=== PATIENT | male | born 1975 | race Caucasian/White ===

== ENCOUNTER 2017-04-27 23:59 | Inpatient (IN) | payer OTHER ==
--- NOTE | ~2017-04-27 | EKG ---
PATIENT: MARYLOU LYNCH UNIT #: [id number] Ventricular Rate: 72 BPM Atrial Rate: 72 BPM P-R Interval: 146 ms QRS Duration: 92 ms Q-T Interval: 382 ms QTC Calculation(Bezet): 418 ms P [place]: 37 degrees Calculated R [place]: 73 degrees Calculated T [place]: 21 degrees Diagnosis Line: Normal sinus rhythm Diagnosis Line: Possible Inferior infarct , age undetermined Diagnosis Line: Abnormal ECG Diagnosis Line: When compared with ECG of 28-APR-2017 00:19, Diagnosis Line: (unconfirmed) Diagnosis Line: No significant change was found Diagnosis Line: Confirmed by TATUM MADDEN MD ([id number]) on 04/29/2017 Diagnosis Line: 7:27:08 AM INTERPRETING MD: MARYANNE ROONEY
--- NOTE | ~2017-04-27 | CO ---
Unit #: [id number] #: [id number] Patient: MARYLOU LYNCH [id number] [facility]. [place], [place] [address] [id number] MR#: [id number] NAME: MARYLOU LYNCH ROOM: 230 Age: 42 Sex: M Admission Date: 04/28/2017 : 1975 Attending Physician: Danna Aguillon M.D. Primary Care Physician: Jaime Perales M.D. Consultation Date: 04/28/2017 CONSULTATION REPORT CHIEF COMPLAINT Right antecubital fossa abscess. HISTORY OF PRESENT ILLNESS This is a 42-year-old gentleman who is difficult to get a complete history from. He apparently was climbing a tree that had thorns several days ago and developed some swelling, redness, tenderness, and warmth in the right antecubital fossa area. He is right handed. He states that he pulled out multiple thorns. PAST MEDICAL HISTORY 1. Hypertension. 2. History of seizures. 3. Anxiety. 4. COPD. 5. History of rhabdomyolysis. PAST SURGICAL HISTORY He has had some sort of fasciotomies done on the gluteal region after sustaining a fall from passing out from alcohol abuse. SOCIAL HISTORY He does smoke. He states that he has not drank for two years. MEDICATIONS Please see med rec list for list of medications. ALLERGIES Wellbutrin. FAMILY HISTORY Noncontributory. REVIEW OF SYSTEMS Negative for fevers, weight loss, or jaundice. Otherwise as above. PHYSICAL EXAMINATION VITAL SIGNS: Temperature is 99.5, heart rate is 93, respiratory rate is 18, blood pressure is 126/74. GENERAL: He drifts in and out of sleep while I am trying to interview and examine him. HEENT: Pupils equal, reactive to light and accommodation. His extraocular muscles are intact. NECK: Without masses or bruits. Unit #: [id number] #: [id number] Patient: MARYLOU LYNCH LUNGS: Show good breath sounds bilaterally with equal air exchange. CARDIAC: Shows regular rate and rhythm without murmur. ABDOMEN: Soft, nontender, nondistended with no organomegaly. EXTREMITIES: In the right antecubital fossa area, he has some cellulitis with induration and severe tenderness. He is not able to extend his arm all the way. NEUROLOGIC: He is alert and oriented. There are no focal deficits. The left upper extremity also has what appears to me to look like tract bush from IV drug use. IMPRESSION Overall impression, this is a gentleman who has a right antecubital fossa abscess. PLAN Plan is to set him up for incision and drainage. I described the need for postoperative dressing changes. He understands those and wishes to proceed. Dictated by... Kiel Zhang III, M.D. VCL/geraldine TD: 04/28/2017 11:26 JOB #: [id number] CONSULTATION REPORT Page 1 of 1 X Kiel Zhang III, MD X CONSULTATION REPORT
--- NOTE | ~2017-04-27 | HP ---
Unit #: [id number] #: [id number] Patient: MARYLOU LYNCH [id number] [place], [place] [address] [id number] MR#: [id number] NAME: MARYLOU LYNCH ROOM: 230 Age: 42 Sex: M Admission Date: 04/28/2017 : 1975 Attending Physician: Danna Aguillon M.D. Primary Care Physician: Jaime Perales M.D. HISTORY AND PHYSICAL REASON FOR ADMISSION Right antecubital fossa abscess. HISTORY OF PRESENT ILLNESS The patient is a 42-year-old male. The majority of this history and physical, as well as review of systems, has been elicited through ER notes and chart review as currently the patient states that he does not wish to speak to me. Every time that I would ask him questions in regards to his past medical history, he states that he has a lot of pain in his right arm and does not wish to tell me any further details. He also tells me that he routinely takes Xanax and Neurontin, as well as Prinivil at home; however, he does not tell me who his primary care physician is, and he denies adamantly IV drug abuse. However, his urine toxicology screen on admission was positive for both benzodiazepines, as well as opiates, to which he is not prescribed. The patient has already been seen by [facility], and he has already undergone an I and D earlier this morning. I am currently evaluating on medical/surgical floor. PAST MEDICAL HISTORY Hypertension per report. PAST SURGICAL HISTORY 1. Fasciotomy. 2. Foot cyst surgery. ALLERGIES Wellbutrin. MEDICATIONS Listed as home medications are Xanax, Neurontin, and Prinivil, although I am not entirely sure he receives these medications from a provider or possibly from the street. SOCIAL HISTORY Positive tobacco use, positive illicit drug use, positive alcohol use. FAMILY HISTORY Reviewed and noncontributory and non-pertinent. REVIEW OF SYSTEMS Unit #: [id number] #: [id number] Patient: MARYLOU LYNCH Please see History of Present Illness. A 12-point review of systems has been discussed and is markedly limited secondary to patient's inability and unwillingness to cooperate for review of systems and/or physical exam. PHYSICAL EXAMINATION VITAL SIGNS: Temperature 98.3, pulse 72, respiratory rate 20, and blood pressure 114/69. GENERAL APPEARANCE: Patient is a 42-year-old noncooperative male lying in no acute distress. HEAD: Atraumatic. Patient refused the rest of his physical exam and refused to answer any further questions. INITIAL IMPRESSION 1. Right antecubital fossa abscess, strong suspicion for intravenous drug use. 2. Prior history of hypertension. 3. Questionable history of anxiety with benzodiazepine dependence. 4. Morbid obesity. PLAN Admission to med/surg floor. Surgery consult. I and D already performed. IV antibiotics. Blood cultures. Symptom management. The long-term prognosis of this patient is poor secondary to his lack of insight into disease process, as well as likely overall noncompliance with medications. Dictated by Lisa Bush/elise TD: 04/28/2017 22:17 JOB #: [id number] HISTORY AND PHYSICAL Page 1 of 1 X Danna Aguillon MD X HISTORY AND PHYSICAL
--- NOTE | ~2017-04-27 | DS ---
Unit #: [id number] #: [id number] Patient: MARYLOU LYNCH [id number] [facility]. [place], [place] [address] [id number] I MR#: [id number] NAME: MARYLOU LYNCH ROOM: 230 Age: 42 Sex: M Admission Date: 04/28/2017 : 1975 Discharge Date: 04/29/2017 Attending Physician: Danna Aguillon M.D. Primary Care Physician: Jaime Perales M.D. DISCHARGE SUMMARY REASON FOR ADMISSION Right antecubital fossa abscess. HISTORY OF PRESENT ILLNESS/HOSPITAL COURSE The patient is a 42-year-old male, very noncompliant and very poor historian, who states he developed a right antecubital fossa abscess. He states that he was climbing a tree and subsequently the tree actually cut him right in the right antecubital fossa area. He was subsequently admitted. Consultation was placed to [facility]. The patient underwent I and D of the aforementioned abscess on April 28, 2017. Postoperatively, he was otherwise well. Wound cultures did show moderate WBCs, many gram-negative rods. Urine tox screen on day of admission was positive for benzodiazepines as well as opiates; however, he stated that he does not recall his primary care physician nor does he tell me where he gets his medications from. At the present time, [facility] stated the patient should stay in the hospital for routine dressing changes as well as management of IV antibiotics and to wait for blood cultures; however, the patient is adamantly stating that he wishes to go home. At time of discharge, from my standpoint I will not continue his Neurontin or Xanax. He will be given a prescription of Lortab 7.5/325 one tablet p.o. q.6 p[address] Benjamin of [facility]. I have also given a prescription for Levaquin 750 mg p.o. daily x10 days. He was discharged from the hospital and overall his long-term prognosis is poor. Chance of re-admission is significantly elevated and also noted was patient did refuse home health at time of discharge. Dictated by... Danna Aguillon M.D. ISPerlita/geraldine TD: 04/30/2017 10:16 JOB #: [id number] Unit #: [id number] #: [id number] Patient: ROCÍOZAYRAMARYLOU DISCHARGE SUMMARY Page 1 of 1 X Danna Aguillon MD X DISCHARGE SUMMARY
--- NOTE | ~2017-04-27 | EKG ---
PATIENT: MARYLOU LYNCH UNIT #: [id number] Ventricular Rate: 88 BPM Atrial Rate: 88 BPM P-R Interval: 138 ms QRS Duration: 88 ms Q-T Interval: 348 ms QTC Calculation(Bezet): 421 ms P [place]: 51 degrees Calculated R [place]: 67 degrees Calculated T [place]: 29 degrees Diagnosis Line: Poor data quality, interpretation may be Diagnosis Line: adversely affected Diagnosis Line: Normal sinus rhythm Diagnosis Line: Normal ECG Diagnosis Line: Diagnosis Line: Confirmed by DINESH LEVIN MD ([id number]) on Diagnosis Line: 05/06/2017 8:28:06 AM INTERPRETING MD: POONAM ROONEY
--- NOTE | ~2017-04-27 | OR ---
Unit #: [id number] #: [id number] Patient: MARYLOU LYNCH [id number] [address] [id number] I MR#: [id number] NAME: MARYLOU LYNCH ROOM: 230 Date of Procedure: 04/28/2017 Admission Date: 04/28/2017 Surgeon: Kiel Zhang III, M.D. : 1975 Attending Physician: Danna Aguillon M.D. Primary Care Physician: Jaime Peralse M.D. OPERATIVE REPORT PREOPERATIVE DIAGNOSIS Right antecubital fossa abscess. POSTOPERATIVE DIAGNOSIS Right antecubital fossa abscess. PROCEDURE PERFORMED Incision and drainage of right antecubital fossa abscess. ANESTHESIA General. SPECIMEN Cultures to pathology or microbiology. COMPLICATIONS None apparent. ESTIMATED BLOOD LOSS Minimal. INDICATIONS FOR PROCEDURE This is a 42-year-old gentleman, who has a right antecubital fossa abscess. He is here today for incision and drainage. DESCRIPTION OF PROCEDURE After consent was obtained, the patient was brought to the operating room and placed in the supine position. General anesthetic was administered. His right antecubital fossa was prepped and draped in standard surgical fashion. I made a transverse incision overlying the area of erythema. There was a medium sized pocket filled with thick purulent material. This was sent for cultures. I then irrigated the wound out and had good hemostasis. I packed the wound with Betadine soaked Kerlix gauze. He tolerated the procedure without any problems and returned to the recovery room in stable condition. Dictated by... Kiel Zhang III, M.D. VCL/garrett Unit #: [id number] #: [id number] Patient: MARYLOU LYNCH TD: 04/28/2017 22:34 JOB #: [id number] OPERATIVE REPORT Page 1 of 1 X Kiel Zhang III, MD PROCEDURE OPERATIVE NOTE
[~2017-04-27 23:59] MED LIST: ALPRAZOLAM1 MG; APRESOLINE; DEPAKOTE; FLEXERIL10 MG PO; TYLENOL #3 PO; VOLTAREN50 MG PO
[2017-04-28] MEDS ORDERED: XANAX1 MG PO (00:08)
[2017-04-28] MEDS ORDERED: PRINIVIL10 MG PO (00:08)
[2017-04-28] MEDS ORDERED: NEURONTIN800 MG PO (00:08)
[2017-04-28 02:14] LABS: BASOPHIL# 0.1 X10e3 (0-0.3); BASOPHIL% 0.7 % (0-2.5); EOSINOPHIL# 0.2 X10e3 (0-0.7); EOSINOPHIL% 1.5 % (0.0-7.0); HEMATOCRIT 38.1 % (38.0-50.0); HEMOGLOBIN 13.2 gm/dL (13.0-16.0); LYMPHOCYTE# 2.7 X10e3 (1.0-3.5); LYMPHOCYTE% 26.6 % (17.0-45.0); MEAN CORPUSCULAR HEMOGLOBIN 29.3 PG (28-34); MEAN CORPUSCULAR HGB CONC 34.5 g/dL (30-36); MEAN PLATELET VOLUME 7.6 FL (6.5-11.5); MONOCYTE# 0.9 X10e3 (0-1.0); NEUTROPHIL# 6.2 X10e3 (1.5-7.1); NEUTROPHIL% 62.2 % (40-75); PLATELET COUNT 261 X10e3 (140-420); RED BLOOD COUNT 4.49 X10e (3.90-5.60); RED CELL DISTRIBUTION WIDTH 14.1 % (11.0-15.5)
[2017-04-28 02:15] LABS: DIFF IND NO
[2017-04-28 02:28] LABS: BUN/CREATININE RATIO 13.75; CALCIUM SERUM 8.6 mg/dL (8.4-10.2); CREATININE SERUM 0.8 mg/dL (0.6-1.4); POTASSIUM 3.5 mmol/L (3.5-5.1)
[2017-04-28 10:52] LABS: AMPHETAMINE NEG (NEG); BARBITURATES NEG (NEG); BENZODIAZEPINES POS (NEG); COCAINE NEG (NEG); MARIJUANA NEG (NEG); OPIATES POS (NEG); TRICYCLIC ANTIDEPRESSANTS NEG (NEG); U METHADONE NEG (NEG)
[2017-04-29 06:35] LABS: HEMATOCRIT 39.7 % (38.0-50.0); HEMOGLOBIN 13.4 gm/dL (13.0-16.0); MEAN CORPUSCULAR HGB CONC 33.8 g/dL (30-36); MEAN PLATELET VOLUME 7.6 FL (6.5-11.5); RED BLOOD COUNT 4.61 X10e (3.90-5.60); RED CELL DISTRIBUTION WIDTH 13.9 % (11.0-15.5); WHITE BLOOD COUNT 8.1 X10e3 (4.0-10.5)
[2017-04-29 07:57] LABS: BUN/CREATININE RATIO 11.25; CALCIUM SERUM 8.6 mg/dL (8.4-10.2); CREATININE SERUM 0.8 mg/dL (0.6-1.4); POTASSIUM 4.2 mmol/L (3.5-5.1)
[2017-04-29] MEDS ORDERED: LEVAQUIN750 MG PO (11:38)
[2017-04-29] MEDS ORDERED: LORTAB 7.5-3251 EACH PO (11:39)
== END 2017-04-29 12:13 | disposition home or self-care (01) | DRG 580 ==
LOC: SED 23:59 → SEDOF 04-28 03:55 → SED 04-28 04:02 → SEDOF 04-28 04:02 → C2A 04-28 08:50 → SEDOF 04-28 08:50 → C2A 04-29 12:13
PROVIDERS: Emergency Medicine; Family Medicine; Surgery
PROC: 0J9D0ZZ Drainage of Right Upper Arm Subcutaneous Tissue and Fascia, Open Approach (ICD-10-PCS; principal; 2017-04-28 10:30)
DX: L02.413 Cutaneous abscess of right upper limb (principal); Z68.41 Body mass index [BMI] 40.0-44.9, adult; I10 Essential (primary) hypertension; E66.01 Morbid (severe) obesity due to excess calories; F41.9 Anxiety disorder, unspecified; J44.9 Chronic obstructive pulmonary disease, unspecified; G40.909 Epilepsy, unspecified, not intractable, without status epilepticus; Z91.19 Patient's noncompliance with other medical treatment and regimen; F17.200 Nicotine dependence, unspecified, uncomplicated; L03.113 Cellulitis of right upper limb
CPT/HCPCS: 36415; 80048; 80307; 82550; 83036; 85025; 85027; 87040; 87070; 87075; 87076; 87205; 93005; 94640; 94760; 96374; 96375; 99285; J0696; J2250; J2270; J2405; J2543; J3010; J3370